=== PATIENT | male | born 1960 | race Caucasian/White ===

== ENCOUNTER 2016-11-15 06:56 | Observation (INO) ==
[2016-11-15] MEDS ORDERED: Ipratropium/Albuterol Neb 3 ML IH ONE (06:58)
[2016-11-15] MEDS ORDERED: Levofloxacin 750 MG/150 ML 750 MG/150 ML BAG IVPB ONE (06:58)
[2016-11-15] MEDS ORDERED: 0.9 % Sodium Chloride 1,000 ML IVC SCH ×2 (07:00→09:15)
--- NOTE | 2016-11-15 07:02 | Emergency Department Note ---
Disposition Clinical Impression: Acute exacerbation of chronic obstructive airways disease Disposition: Admitted As Inpatient Condition: Fair Referrals: Natalia Marquez [employer]PEDITER [Primary Care Provider] - Forms: ED Satisfaction Letter Time of Disposition: 07:51 (Markos [facility] Obsv) SOB HPI - General Chief Complaint: ED Shortness of Breath/Dyspnea Stated Complaint: [place], o2 sat 90% Time Seen by Provider: 11/15/16 06:56 Source: patient, EMS Mode of arrival: EMS Limitations: no limitations Nursing Notes Reviewed: Yes Vital Signs Reviewed: Yes - History of Present Illness 56-year-old male increasing shortness of breath cough congestion worsening over the past couple of days it is noted there that the patient's concentrator is upstairs he is down stairs there is approximately 30 feet or more of oxygen hosing for him been increasing his breathing treatments he is bringing up yellow -green phlegm he is finding himself choking at night when he lays down denies any apnea or cyanosis denies any rash or lesions denies fevers or chills patient states this typically occurs this time a year denies any abdominal pain or discomfort any calf pain swelling edema noted denies any rash or lesions he denies numbness tingling weakness or any additional complaints all systems reviewed and are otherwise negative completely entire review of systems Pt Subjective Complaint: shortness of breath, cough Onset (ago): week(s) Severity: moderate, severe Consistency/Duration: gradually worsening Improves with: bronchodilators Worsens with: exertion, movement Known history of: COPD Associated symptoms: Reports: cough, wheezing, sputum production. Denies: chest pain, pain with inspiration, fever, orthopnea, lower extremity pain, polyuria, polydipsia, parasthesias, palpitations, hemoptysis, diaphoresis, nausea/vomiting, syncope, abdominal pain, sense of impending doom Treatment prior to arrival: oxygen, bronchodilator Cough present: Yes Cough Description: Productive, Strong, Bronchospastic, Wheezy Cough Frequency: Intermittent Sputum production: Yes Sputum Amount: Small Sputum Color: Yellow, Green - Related Data Home Medications Medication Instructions Recorded Confirmed Albuterol Neb [AccuNeb] 1.25 mg IH QID PRN 11/15/16 11/15/16 Albuterol Sulfate [Albuterol 2 puff IH Q4HR PRN 11/15/16 11/15/16 Inhaler] Aspirin [Lo-Dose Aspirin EC] 81 mg PO DAILY 11/15/16 11/15/16 Atorvastatin [Lipitor] 10 mg PO HS 11/15/16 11/15/16 Roflumilast [Daliresp] 500 mcg PO DAILY 11/15/16 11/15/16 Tiotropium [place] [Spiriva 4 gm IH DAILY 11/15/16 11/15/16 Respimat] Allergies Allergy/AdvReac Type Severity Reaction Status Date / Time acetaminophen Allergy Hives Verified 11/15/16 06:58 [From Darvocet-N] propoxyphene Allergy Hives Verified 11/15/16 06:58 [From Darvocet-N] tramadol Allergy Numbness Verified 11/15/16 06:58 All systems ED: reviewed and negative except as stated. Review of Systems: As Per HPI Constitutional: Denies: fever, chills, weakness Eyes: Denies: eye pain, eye discharge ENT ED: Reports: congestion. Denies: ear pain, throat pain Cardiovascular: Denies: chest pain, palpitations, dyspnea on exertion Respiratory: Reports: cough, dyspnea, wheezes, sputum production Gastrointestinal: Denies: abdominal pain, nausea, vomiting Genitourinary: Denies: urgency, dysuria, frequency Integumentary: Denies: rash, abrasion, lesions Neurological: Denies: headache, weakness Psychiatric: Denies: anxiety, depression Endocrine: Reports: fatigue Hematological/Lymphatic: Denies: easy bleeding Allergic/Immunologic: Denies: facial swelling Past Medical History - Past Medical History Attestation: Yes The following information was validated with the patient. Source: patient, old records reviewed, nursing notes reviewed Medical history: Reports: arthritis, cancer, COPD, GERD, hyperlipidemia Physical Exam - General Limitations: no limitations General appearance: alert, in no apparent distress, anxious - Head Head exam: atraumatic, normocephalic, normal inspection - Eye Eye exam: Present: normal appearance, PERRL, EOMI - ENT ENT exam: normal exam, normal oropharynx, mucous membranes moist, TM's normal bilaterally, normal external ear exam, other (Postnasal drip) - Neck Neck exam: Present: normal inspection, full ROM, trachea midline - Chest Chest inspection: Present: normal inspection, symmetric chest wall rise - Respiratory Respiratory exam: Present: wheezes, accessory muscle use, prolonged expiratory phase - Cardiovascular Cardiovascular exam: Present: regular rate, normal rhythm, normal heart sounds - Abdominal Exam Abdominal exam: Present: soft, Non-Tender, normal bowel sounds. Absent: mass, pulsatile mass - Extremities Exam Extremities exam: Present: normal inspection, full ROM, normal capillary refill. Absent: tenderness, pedal edema, joint swelling, calf tenderness - Expanded Lower Extremity Exam Neurovascular/Tendon exam: Present: normal capillary refill, normal fine/light touch Gait: observed and normal - Back Exam Back exam: Present: normal inspection, full ROM. Absent: muscle spasm - Neurological Exam Neurological exam: Present: alert, oriented X3, CN II-XII intact - Psychiatric Psychiatric exam: Present: normal affect, normal mood - Skin Skin exam: Present: warm, dry, intact, normal color Course Course Narrative: Patient immediately seen and examined given DuoNeb 2 and received just an albuterol treatment in route patient is coughing up phlegm which is being collected for sputum sample CBC chem 7 chest x-rays been ordered EKG was done and reviewed anticipated admission of the patient to [facility] patient though is slightly tachycardic at this time as result of having received a DuoNeb this does not appear to be sepsis - Reevaluation(s) Reevaluation #1: Patient is seen and elevated white count patient's lactic acid is normal limits at this time he does not meet criteria dyslexic as tachycardia and tachypnea but this is secondary to an aerosol treatment patient be admitted services Dr. Burrows for IV anabolic steroids discharged [facility] stable Vital Signs Temperature 98.6 F 11/15/16 06:58 Pulse Rate 118 11/15/16 06:58 Respiratory Rate 18 11/15/16 06:58 Blood Pressure 132/63 11/15/16 06:58 O2 Sat by Pulse Oximetry 100 11/15/16 06:58 Temperature 98.6 F 11/15/16 06:58 Pulse Rate 118 11/15/16 07:21 Respiratory Rate 24 11/15/16 07:21 Blood Pressure 124/69 11/15/16 07:21 O2 Sat by Pulse Oximetry 98 11/15/16 07:21 Oxygen Delivery Oxygen Delivery Aerosol Mask Shortness of Breath/Dyspnea - Differential Diagnosis Likely: acute exacerbation of chronic obstructive airways disease, pneumonia - Medical Records Medical records reviewed: Yes I reviewed the patient's medical records. - Lab Data Lab results reviewed: Yes I reviewed the patient's lab results. Result diagrams: 11/15/16 07:10 11/15/16 07:10 Lab Results 11/15/16 11/15/16 11/15/16 Range/Units 07:10 07:10 07:10 WBC 18.5 H (4.3-11.1) K/mcL RBC 4.44 (4.19-5.50) M/mcL Hgb 13.5 (12.9-16.9) g/dL Hct 40.8 (37.5-50.1) % MCV 91.9 (83.0-100.0) fL MCH 30.4 (28.0-33.3) pg MCHC 33.1 (31.6-35.5) g/dL RDW 12.8 (11.5-14.5) % Plt Count 241 (140-400) K/mcL MPV 9.3 L (9.4-12.4) fL Immature Gran % 0.8 (0-4) % Seg Neutrophils % 86.7 % Lymphocytes % 4.2 % Monocytes % 8.1 % Eosinophils % 0.1 % Basophils % 0.1 % Neutrophils # 16.0 H (1.6-8.9) K/mcL Lymphocytes # 0.8 (0.6-4.6) K/mcL Monocytes # 1.5 H (0.0-1.3) K/mcL Eosinophils # 0.0 (0.0-0.6) K/mcL Basophils # 0.0 (0.0-0.2) K/mcL PT (9.4-12.1) Seconds INR APTT 33.5 (26.0-36.0) Seconds Sodium 139 (136-145) mEq/L Potassium 4.4 (3.5-4.5) mEq/L Chloride 96 L (98-109) mEq/L Carbon Dioxide 31 H (19-29) mEq/L BUN 10 (8-26) mg/dL Creatinine 0.69 L (0.72-1.25) mg/dL Est GFR ( Amer) > 60 (> 60) Est GFR (Non-Af Amer) > 60 (> 60) BUN/Creatinine Ratio 14 (6-26) Glucose 136 H (70-99) mg/dL Calculated Osmolality 289 (280-300) Lactic Acid (0.5-2.2) mmol/L Calcium 9.7 (8.6-10.8) mg/dL 11/15/16 11/15/16 Range/Units 07:10 07:10 WBC (4.3-11.1) K/mcL RBC (4.19-5.50) M/mcL Hgb (12.9-16.9) g/dL Hct (37.5-50.1) % MCV (83.0-100.0) fL MCH (28.0-33.3) pg MCHC (31.6-35.5) g/dL RDW (11.5-14.5) % Plt Count (140-400) K/mcL MPV (9.4-12.4) fL Immature Gran % (0-4) % Seg Neutrophils % % Lymphocytes % % Monocytes % % Eosinophils % % Basophils % % Neutrophils # (1.6-8.9) K/mcL Lymphocytes # (0.6-4.6) K/mcL Monocytes # (0.0-1.3) K/mcL Eosinophils # (0.0-0.6) K/mcL Basophils # (0.0-0.2) K/mcL PT 18.1 H (9.4-12.1) Seconds INR 1.7 APTT (26.0-36.0) Seconds Sodium (136-145) mEq/L Potassium (3.5-4.5) mEq/L Chloride (98-109) mEq/L Carbon Dioxide (19-29) mEq/L BUN (8-26) mg/dL Creatinine (0.72-1.25) mg/dL Est GFR ( Amer) (> 60) Est GFR (Non-Af Amer) (> 60) BUN/Creatinine Ratio (6-26) Glucose (70-99) mg/dL Calculated Osmolality (280-300) Lactic Acid 0.8 (0.5-2.2) mmol/L Calcium (8.6-10.8) mg/dL - Radiology Data Radiology results reviewed: Yes I reviewed the patient's radiology results. ITS Impressions Chest X-Ray 11/15/16 06:57 IMPRESSION: 1. Questionable 12 mm apical right upper lobe pulmonary nodule. Nonemergent chest CT recommended to better characterize. 2. COPD 3. No other acute abnormality. D/ / Joe Lenz MD / Joe Lenz MD Interpreting Provider: Joe Lenz MD - EKG Data EKG attestation: Yes I reviewed and interpreted this EKG. EKG results narrative: Sinus tach rate 118 SD 139 QRS 66 QT 333 access 81 Critical Care Time Critical Care Time: No
[2016-11-15] MEDS: methylPREDNISolone 125 MG/2 ML VIAL IVP ONE (07:10)
[2016-11-15 07:22] LABS: Basophils % 0.1 %; Eosinophils % 0.1 %; Hematocrit 40.8 % (37.5-50.1); Hemoglobin 13.5 g/dL (12.9-16.9); Immature Granulocytes % 0.8 % (0-4); Lymphocytes # 0.8 K/mcL (0.6-4.6); Lymphocytes % 4.2 %; Mean Corpuscular HGB Conc 33.1 g/dL (31.6-35.5); Mean Corpuscular Hemoglobin 30.4 pg (28.0-33.3); Mean Corpuscular Volume 91.9 fL (83.0-100.0); Mean Platelet Volume 9.3 fL (9.4-12.4); Monocytes # 1.5 K/mcL (0.0-1.3); Monocytes % 8.1 %; Platelet Count 241 K/mcL (140-400); Red Blood Count 4.44 M/mcL (4.19-5.50); Red Cell Distribution Width 12.8 % (11.5-14.5); Segmented Neutrophils % 86.7 %
[2016-11-15 07:37] LABS: BUN/Creatinine Ratio 14 (6-26); Blood Urea Nitrogen 10 mg/dL (8-26); Calcium 9.7 mg/dL (8.6-10.8); Carbon Dioxide 31 mEq/L (19-29); Chloride 96 mEq/L (98-109); Glucose 136 mg/dL (70-99); Osmolality,Calculated 289 (280-300); Potassium 4.4 mEq/L (3.5-4.5); Sodium 139 mEq/L (136-145); eGFR For African Americans > 60 (> 60); eGFR For Non-African Americans > 60 (> 60)
[2016-11-15 07:46] LABS: INR 1.7; Prothrombin Time 18.1 Seconds (9.4-12.1)
[2016-11-15] MEDS ORDERED: Naloxone 0.4 MG/ML INJ IVP PRN (09:15)
[2016-11-15] MEDS ORDERED: (Roflumilast [Daliresp] 500 MCG) PO SCH (09:15)
[2016-11-15] MEDS ORDERED: Albuterol 2.5 MG/3 ML NEBULIZER IH PRN (09:15)
[2016-11-15] MEDS ORDERED: Ondansetron ODT 4 MG TAB.RAPDIS SL PRN (09:15)
[2016-11-15] MEDS: Aspirin Enteric Coated 81 MG Tablet PO SCH (10:22)
[2016-11-15] MEDS: Nicotine 21 MG PATCH.TD24 TD SCH (10:23)
[2016-11-15] MEDS: Ipratropium/Albuterol Neb 3 ML IH SCH ×3 (10:33→23:45)
[2016-11-15] MEDS ORDERED: methylPREDNISolone 125 MG/2 ML VIAL IVP SCH (12:00)
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
[2016-11-15] MEDS: Lactobacillus 1 EACH CAP.SPRINK PO SCH (20:20)
[2016-11-15] MEDS ORDERED: Acetaminophen 325 MG TABLET PO PRN (20:37)
[2016-11-16] MEDS: Ipratropium/Albuterol Neb 3 ML IH SCH ×2 (04:33→10:37)
[2016-11-16 05:24] LABS: Basophils % 0.1 %; Hematocrit 38.4 % (37.5-50.1); Hemoglobin 12.8 g/dL (12.9-16.9); Immature Granulocytes % 0.4 % (0-4); Lymphocytes # 0.9 K/mcL (0.6-4.6); Lymphocytes % 6.4 %; Mean Corpuscular HGB Conc 33.3 g/dL (31.6-35.5); Mean Corpuscular Hemoglobin 30.5 pg (28.0-33.3); Mean Corpuscular Volume 91.4 fL (83.0-100.0); Mean Platelet Volume 9.6 fL (9.4-12.4); Monocytes % 7.5 %; Neutrophils # 11.7 K/mcL (1.6-8.9); Platelet Count 283 K/mcL (140-400); Red Cell Distribution Width 12.7 % (11.5-14.5); Segmented Neutrophils % 85.6 %
[2016-11-16 05:40] LABS: BUN/Creatinine Ratio 15 (6-26); Blood Urea Nitrogen 11 mg/dL (8-26); Calcium 9.7 mg/dL (8.6-10.8); Carbon Dioxide 31 mEq/L (19-29); Chloride 102 mEq/L (98-109); Glucose 129 mg/dL (70-99); Osmolality,Calculated 301 (280-300); Potassium 3.7 mEq/L (3.5-4.5); Sodium 145 mEq/L (136-145); eGFR For African Americans > 60 (> 60); eGFR For Non-African Americans > 60 (> 60)
[2016-11-16 06:51] VITALS: BP 102/66
[2016-11-16] MEDS: Aspirin Enteric Coated 81 MG Tablet PO SCH (08:23)
[2016-11-16] MEDS: Lactobacillus 1 EACH CAP.SPRINK PO SCH (08:23)
[2016-11-16] MEDS: Nicotine 21 MG PATCH.TD24 TD SCH (08:30)
[2016-11-16] MEDS ORDERED: Levofloxacin 500 MG/100 ML 500 MG/100 ML BAG IVPB SCH (09:00)
--- NOTE | 2016-11-16 10:10 | Discharge Summary ---
Date of Encounter: 11/16/16 Time of Encounter: 10:00 - Discharge Diagnosis (1) Acute exacerbation of chronic obstructive airways disease Priority: Primary Status: Acute (2) Lung nodule Priority: Secondary Status: Acute - Discharge Medications Prescriptions: Lactobacillus [Culturelle] 1 each PO BID #4 cap.sprink levoFLOXacin [Levaquin] 750 mg PO DAILY #2 tablet Home Medications: Albuterol Neb [AccuNeb] 1.25 mg IH QID PRN 11/15/16 [History] Albuterol Sulfate [Albuterol Inhaler] 2 puff IH Q4HR PRN 11/15/16 [History] Aspirin [Lo-Dose Aspirin EC] 81 mg PO DAILY 11/15/16 [History] Atorvastatin [Lipitor] 10 mg PO HS 11/15/16 [History] Roflumilast [Daliresp] 500 mcg PO DAILY 11/15/16 [History] Tiotropium [place] [Spiriva Respimat] 4 gm IH DAILY 11/15/16 [History] Lactobacillus [Culturelle] 1 each PO BID #4 cap.sprink 11/16/16 [Rx] levoFLOXacin [Levaquin] 750 mg PO DAILY #2 tablet 11/16/16 [Rx] Allergies/Adverse Reactions: 3 Allergy/AdvReac Type Severity Reaction Status Date / Time acetaminophen Allergy Hives Verified 11/15/16 06:58 [From Darvocet-N] propoxyphene Allergy Hives Verified 11/15/16 06:58 [From Darvocet-N] tramadol Allergy Numbness Verified 11/15/16 06:58 Procedures/tests Complete & Pending: Procedures Performed prior 72 hours Category Date Time Status CT chest wo con [CT] Routine Cat Scan 11/15/16 17:19 Completed Date of admission: 11/15/16 08:02 Primary care physician: Natalia Marquez CNP - Patient Status Disposition: Home, Self-Care Condition: Fair Functional capacity at discharge: independent ambulation Overall status at discharge: patient is progressing back to baseline - Discharge Instructions Follow Up With: Natalia Marquez CNP [Primary Care Provider] - 1 week - Diet and Activity Activity: resume usual activities as tolerated, wear oxygen at night Diet: advance to your usual diet Hospital course: Mr. Almonte is a 56 year old male who came to emergency room stating he had dyspnea onset approximately 2 days previously. He reports cough productive of green-yellow sputum. He came to emergency room and was evaluated and felt to have exacerbation of COPD. He was admitted to [facility] for ongoing care needs. Initial orders were written by the emergency room physician. I saw him on November 15 and performed the history and physical. He was given Levaquin and Solu-Medrol. I added lactobacillus. Chest CT was done to further evaluate. The CT showed right lower lobe nodules up to 7 mm diameter. Repeat scan was recommended in 3-6 months since he is considered high risk. His PCP can arrange repeat scan when needed. He had good clinical response to treatment with WBC decreasing to 13.7 on the day of discharge. His breathing was back to baseline when I saw him November 16 and he felt stable for discharge home. He will follow with his PCP Natalia Marquez CNP within 1 week. I strongly encouraged him to discontinue smoking. He will continue with antibiotic and probiotic for 2 additional days at discharge. - Time Spent with Patient Total time spent providing and/or coordinating discharge services: - Constitutional Vitals: Temp Pulse Resp BP Pulse Ox 98.4 F 95 18 102/66 98 11/16/16 06:45 11/16/16 04:26 11/16/16 06:45 11/16/16 06:45 11/16/16 06:45
--- NOTE | 2016-11-16 18:09 | Electrocardiograph Report ---
[address] [address] Test Date: 2016-11-15 Pat Name: Micheal Almonte Department: [id number] Room: [facility] Gender: M Psychological Examiner: [id number] : 1960 Requested By: Malissa Hussein Order Number: [id number] Reading MD: Khalif Davis MD Measurements Intervals [place] Rate: 118 P: 81 W[place]: 139 QRS: 81 QRSD: 66 T: 73 QT: 263 QTc: 333 Interpretive Statements SINUS TACHYCARDIA Electronically Signed On 11-16-2016 18:08:20 EDT by Khalif Davis MD
== END 2016-11-16 11:45 | disposition home or self-care (01) ==
LOC: INPPIK 06:56 → EMEROOPIK 06:56 → INPPIK 08:46
PROVIDERS: ADMIT Emergency Medicine; ATTEND Internal Medicine

== ENCOUNTER 2017-03-23 05:31 | Observation (INO) ==
[2017-03-23] MEDS ORDERED: 0.9 % Sodium Chloride 1,000 ML IVC ONE (05:34)
[2017-03-23] MEDS ORDERED: methylPREDNISolone 125 MG/2 ML VIAL IVP ONE (05:34)
[2017-03-23] MEDS ORDERED: Levofloxacin 750 MG/150 ML 750 MG/150 ML BAG IVPB ONE (05:34)
[2017-03-23] MEDS ORDERED: Ipratropium/Albuterol Neb 3 ML IH ONE (05:34)
[2017-03-23] MEDS ORDERED: Ketorolac 30 MG/ML VIAL IVP ONE (05:36)
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
[2017-03-23 06:17] LABS: Basophils % 0.2 %; Eosinophils # 0.1 K/mcL (0.0-0.6); Eosinophils % 0.9 %; Hematocrit 40.4 % (37.5-50.1); Hemoglobin 13.3 g/dL (12.9-16.9); Immature Granulocytes % 0.4 % (0-4); Lymphocytes % 7.2 %; Mean Corpuscular HGB Conc 32.9 g/dL (31.6-35.5); Mean Corpuscular Hemoglobin 29.6 pg (28.0-33.3); Mean Platelet Volume 9.9 fL (9.4-12.4); Monocytes # 1.5 K/mcL (0.0-1.3); Monocytes % 10.4 %; Neutrophils # 11.7 K/mcL (1.6-8.9); Platelet Count 235 K/mcL (140-400); Red Blood Count 4.49 M/mcL (4.19-5.50); Red Cell Distribution Width 13.1 % (11.5-14.5); Segmented Neutrophils % 80.9 %
[2017-03-23 06:34] LABS: BUN/Creatinine Ratio 15 (6-26); Blood Urea Nitrogen 8 mg/dL (6-20); Calcium 9.7 mg/dL (8.6-10.3); Carbon Dioxide 38 mEq/L (23-29); Chloride 91 mEq/L (98-107); Glucose 129 mg/dL (70-105); Osmolality,Calculated 282 (280-300); Sodium 136 mEq/L (136-145); eGFR For Non-African Americans > 60 (> 60)
[2017-03-23] MEDS ORDERED: Ibuprofen 400 MG TABLET PO PRN (07:16)
[2017-03-23] MEDS ORDERED: Naloxone 0.4 MG/ML INJ IVP PRN (07:16)
[2017-03-23] MEDS ORDERED: 0.9 % Sodium Chloride 1,000 ML IVC SCH (07:16)
[2017-03-23] MEDS ORDERED: predniSONE 20 MG TABLET PO SCH (08:00)
[2017-03-23] MEDS: Aspirin Enteric Coated 81 MG Tablet PO SCH (08:10)
[2017-03-23] MEDS ORDERED: Ipratropium/Albuterol Neb 3 ML IH SCH (10:00)
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
[2017-03-23] MEDS: Nicotine 21 MG PATCH.TD24 TD SCH (12:16)
[2017-03-23] MEDS: predniSONE 20 MG TABLET PO SCH ×2 (12:20→16:52)
[2017-03-23] MEDS: Albuterol 2.5 MG/3 ML NEBULIZER IH PRN ×2 (14:58→19:59)
--- NOTE | 2017-03-23 16:39 | Electrocardiograph Report ---
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
[2017-03-24] MEDS: Albuterol 2.5 MG/3 ML NEBULIZER IH PRN ×3 (00:27→09:32)
[2017-03-24 06:01] LABS: Basophils % 0.1 %; Eosinophils % 0.1 %; Hemoglobin 11.5 g/dL (12.9-16.9); Immature Granulocytes % 0.4 % (0-4); Lymphocytes # 0.9 K/mcL (0.6-4.6); Lymphocytes % 8.5 %; Mean Corpuscular HGB Conc 32.9 g/dL (31.6-35.5); Mean Corpuscular Hemoglobin 29.5 pg (28.0-33.3); Mean Corpuscular Volume 89.7 fL (83.0-100.0); Mean Platelet Volume 10.2 fL (9.4-12.4); Monocytes # 1.1 K/mcL (0.0-1.3); Monocytes % 9.6 %; Neutrophils # 8.9 K/mcL (1.6-8.9); Platelet Count 240 K/mcL (140-400); Segmented Neutrophils % 81.3 %
[2017-03-24 06:33] VITALS: BP 97/60
[2017-03-24] MEDS ORDERED: predniSONE 10 MG TABLET PO SCH (08:00)
[2017-03-24] MEDS: Aspirin Enteric Coated 81 MG Tablet PO SCH (08:06)
[2017-03-24] MEDS: Nicotine 21 MG PATCH.TD24 TD SCH (08:14)
[2017-03-24] MEDS ORDERED: Levofloxacin 750 MG/150 ML 750 MG/150 ML BAG IVPB SCH (09:00)
--- NOTE | 2017-03-24 09:43 | Discharge Summary ---
Date of Encounter: 03/24/17 Time of Encounter: 09:30 - Discharge Diagnosis (1) Acute exacerbation of chronic obstructive airways disease Priority: Primary Status: Acute (2) Lung nodule Priority: Secondary Status: Acute - Discharge Medications Prescriptions: Lactobacillus [Culturelle] 1 each PO BID #6 cap.sprink levoFLOXacin [Levaquin] 500 mg PO DAILY #3 tablet predniSONE [PredniSONE] 10 mg PO BIDWM #6 tablet Home Medications: Albuterol Neb [AccuNeb] 1.25 mg IH QID PRN 11/15/16 [History] Albuterol Sulfate [Albuterol Inhaler] 2 puff IH Q4HR PRN 11/15/16 [History] Aspirin [Lo-Dose Aspirin EC] 81 mg PO DAILY 11/15/16 [History] Atorvastatin [Lipitor] 10 mg PO HS 11/15/16 [History] Roflumilast [Daliresp] 500 mcg PO DAILY 11/15/16 [History] Buprenorphine HCl/Naloxone HCl [Suboxone 8 mg-2 mg Sl Film] 1 each SL BID [History] Nicotine Patch [Nicoderm] 21 mg TD DAILY 03/23/17 [History] Oxybutynin [Ditropan] 5 mg PO QDPC 03/23/17 [History] Lactobacillus [Culturelle] 1 each PO BID #6 cap.sprink 03/24/17 [Rx] Omeprazole [PriLOSEC] 40 mg PO DAILY PRN #0 03/24/17 [Rx] levoFLOXacin [Levaquin] 500 mg PO DAILY #3 tablet 03/24/17 [Rx] predniSONE [PredniSONE] 10 mg PO BIDWM #6 tablet 03/24/17 [Rx] Allergies/Adverse Reactions: 3 Allergy/AdvReac Type Severity Reaction Status Date / Time acetaminophen Allergy Hives Verified 11/15/16 06:58 [From Darvocet-N] propoxyphene Allergy Hives Verified 11/15/16 06:58 [From Darvocet-N] tramadol Allergy Numbness Verified 11/15/16 06:58 Procedures/tests Complete & Pending: Procedures Performed prior 72 hours Category Date Time Status CT chest wo con [CT] Routine Cat Scan 03/23/17 12:12 Completed Date of admission: 03/23/17 07:12 Primary care physician: Natalia Marquez CNP Consults: 03/23/17 10:27 Consult to Nutrition [CONS] Routine Comment: Consulting Provider: NUTRITION Reason for Dietary Consult: MST Score - Patient Status Disposition: Home, Self-Care Condition: Fair Functional capacity at discharge: independent ambulation Overall status at discharge: patient is progressing back to baseline - Discharge Instructions Follow Up With: Natalia Marquez CNP [Primary Care Provider] - 1 week - Diet and Activity Activity: resume usual activities as tolerated, wear oxygen at night Diet: advance to your usual diet Hospital course: Mr. Almonte is a 56 year old male who came to emergency room stating he had increased dyspnea with cough productive of green/yellow sputum onset 3-4 days earlier. He reported slight discomfort in his chest on deep inspiration. He denies vomiting or diarrhea. He was evaluated emergency room and felt to have exacerbation of COPD and was admitted to [facility] floor for ongoing care needs. Initial orders were written by the emergency room physician. I saw him on March 23 and performed history and physical. He was started on Levaquin, DuoNeb nebs, and prednisone. Lactobacillus was added. Chest CT was done to further evaluate for pneumonia and previously seen lung nodules. The CT showed poorly visualized left lower lobe spiculated nodule 7-8 mm diameter. It appeared similar in size to previous CT. It was recommended a follow-up scan be done in one year. His PCP can arrange this. He responded well clinically to treatment with WBC normalizing at 10.9 by day of discharge. He remained afebrile and on March 24 felt stable for discharge home. He will follow with his PCP Natalia Marquez CMP within 1 week. He will continue with antibiotic and probiotic for 3 additional days at discharge. I encouraged him to remain a nonsmoker. - Time Spent with Patient Total time spent providing and/or coordinating discharge services: - Constitutional Vitals: Temp Pulse Resp BP Pulse Ox 98.2 F 100 20 97/60 97 03/24/17 06:32 03/24/17 06:32 03/24/17 07:02 03/24/17 06:32 03/24/17 07:02
== END 2017-03-24 11:10 | disposition home or self-care (01) ==
LOC: INPPIK 05:31 → EMEROOPIK 05:31 → INPPIK 07:31
PROVIDERS: ADMIT Internal Medicine; ATTEND Internal Medicine

== ENCOUNTER 2020-10-25 01:34 | Observation (INO) ==
[2020-10-25] MEDS ORDERED: Ipratropium/Albuterol Neb 3 ML IH ONE (01:46)
[2020-10-25 02:39] LABS: Basophils % 0.1 %; Hematocrit 38.5 % (37.5-50.1); Hemoglobin 12.3 g/dL (12.9-16.9); Immature Granulocytes % 0.5 % (0-4); Lymphocytes # 0.3 K/mcL (0.6-4.6); Lymphocytes % 3.6 %; Mean Corpuscular HGB Conc 31.9 g/dL (31.6-35.5); Mean Corpuscular Hemoglobin 29.9 pg (28.0-33.3); Mean Corpuscular Volume 93.4 fL (83.0-100.0); Mean Platelet Volume 10.1 fL (9.4-12.4); Monocytes # 0.6 K/mcL (0.0-1.3); Monocytes % 7.1 %; Neutrophils # 7.7 K/mcL (1.6-8.9); Platelet Count 166 K/mcL (140-400); Red Blood Count 4.12 M/mcL (4.19-5.50); Red Cell Distribution Width 13.2 % (11.5-14.5); Segmented Neutrophils % 88.7 %; White Blood Count 8.6 K/mcL (4.3-11.1)
[2020-10-25 03:03] LABS: BUN/Creatinine Ratio 23 (6-26); Blood Urea Nitrogen 9 mg/dL (8-23); Calcium 8.4 mg/dL (8.6-10.3); Carbon Dioxide 45 mEq/L (23-29); Chloride 87 mEq/L (98-107); Glucose 97 mg/dL (70-105); Osmolality,Calculated 281 (280-300); Potassium 4.5 mEq/L (3.5-5.1); Sodium 136 mEq/L (136-145); eGFR For African Americans > 60 (> 60); eGFR For Non-African Americans > 60 (> 60)
[2020-10-25 03:22] LABS: ABG PCO2 84 mmHg (35-45); ABG PH 7.32 pH Units (7.32-7.45)
[2020-10-25 03:23] LABS: ABG Base Excess 14 mEq/L (-2 to 3); ABG HCO3 44 mEq/L (21-27); ABG Oxygen Saturation 95 % (95-98); ABG PO2 89 mmHg (85-104); ABG TCO2 46 mEq/L (20-26)
[2020-10-25] MEDS ORDERED: Isovue-370 500 ML BOTTLE IVP ONE (04:01)
[2020-10-25 04:28] LABS: Bilirubin,Urine Small (Negative); Blood,Urine Trace-intact (Negative); Clarity,Urine Clear (Clear); Color,Urine Dark Yellow (Yellow); Glucose,Urine (UA) Normal (Normal); Ketones,Urine 80 mg/dL (Negative); Leukocyte Esterase,Urine Negative (Negative); Nitrite,Urine Negative (Negative); Protein,Urine 30 mg/dL (Neg-Trace); Urobilinogen,Urine Normal (Normal)
[2020-10-25 04:41] LABS: RBC,Urine 0-3 per hpf (0-3); Transitional Epi Cells,Urine Few per hpf (None-Few)
[2020-10-25 04:44] LABS: Amphetamine Screen,Urine Positive ng/mL (Cutoff=1000); Barbiturate Screen,Urine Negative ng/mL (Cutoff=200); Benzodiazepines Screen,Urine Negative ng/mL (Cutoff=200); Cannabinoid Screen,Urine Negative ng/mL (Cutoff = 50); Cocaine Screen,Urine Negative ng/mL (Cutoff= 300); Opiate Screen,Urine Negative ng/mL (Cutoff=300); Phencyclidine Screen,Urine Negative ng/mL (Cutoff=25)
[2020-10-25] MEDS ORDERED: Azithromycin 500 MG in 0.9 % Sodium Chloride 250 ML IVPB ONE (06:38)
[2020-10-25] MEDS ORDERED: Naloxone 0.4 MG/ML INJ IVP PRN (08:37)
[2020-10-25] MEDS: 0.9 % Sodium Chloride 1,000 ML IVC SCH ×2 (08:57→22:43)
[2020-10-25] MEDS ORDERED: Aspirin Enteric Coated 81 MG Tablet PO SCH (09:00)
[2020-10-25] MEDS ORDERED: *HR* LORazepam 2 MG/ML VIAL IVP ONE (10:04)
[2020-10-25] MEDS: Ipratropium/Albuterol Neb 3 ML IH SCH ×4 (10:13→20:52)
[2020-10-25] MEDS: Budesonide/Formoterol 160/4.5 1 PUFF INH IH SCH ×2 (10:13→20:51)
[2020-10-25 11:47] LABS: ABG Base Excess 14 mEq/L (-2 to 3); ABG HCO3 43 mEq/L (21-27); ABG Oxygen Saturation 87 % (95-98); ABG PCO2 79 mmHg (35-45); ABG PH 7.34 pH Units (7.32-7.45); ABG PO2 59 mmHg (85-104); ABG TCO2 45 mEq/L (20-26)
[2020-10-25 12:09] LABS: Albumin 3.2 g/dL (3.5-5.7); Bilirubin,Indirect 0.3 mg/dL (0.0-1.0); Bilirubin,Total 0.3 mg/dL (0.3-1.0); Globulin 3.3 g/dL (2.4-3.5); Total Protein 6.5 g/dL (6.4-8.9)
[2020-10-25] MEDS ORDERED: *HR* LORazepam 2 MG/ML VIAL IVP PRN (12:11)
[2020-10-25 22:56] VITALS: BP 130/75; PULSE 97; RESP 18; TEMP 97.9; O2SAT 95
[2020-10-26] MEDS ORDERED: *HR* Enoxaparin 40 MG/0.4 ML SYRINGE SQ SCH (06:00)
== END 2020-10-26 00:25 | disposition short-term general hospital (02) ==
LOC: INPPIK 01:34 → EMEROOPIK 01:34 → INPPIK 08:00
PROVIDERS: ADMIT Family Medicine; ATTEND Family Medicine